=== PATIENT | female | born 1975 | race Caucasian/White ===

== ENCOUNTER 2018-12-26 15:17 | Emergency (ER) | payer OTHER ==
[2018-12-26 17:35] VITALS: BP 129/81
--- NOTE | 2018-12-26 19:08 | UC ---
Lower Extremity/Ankle HPI - HPI Summary HPI Summary: 43 year old female with complaints of right lateral foot pain x 2 weeks. States she recently began running and is concerned for a stress fracture. Reports pain is worse with running and improves with rest. Denies injury, numbness, or tingling. - History of Current Complaint Chief Complaint: UCLowerExtremity Stated Complaint: RIGHT FOOT INJURY Time Seen by Provider: 12/26/18 19:00 Hx Obtained From: Patient Hx Last Menstrual Period: 12/15 Pain Intensity: 0 - Allergies/Home Medications Allergies/Adverse Reactions: Allergies Allergy/AdvReac Type Severity Reaction Status Date / Time No Known Allergies Allergy Verified 12/26/18 17:28 Home Medications: Home Medications Ascorbic Acid [Vitamin C] 400 mg PO DAILY 12/26/18 [History Confirmed 12/26/18] Cholecalciferol TAB* [Vitamin D TAB*] 20 units PO DAILY 12/26/18 [History Confirmed 12/26/18] Ibuprofen TAB* [Motrin TAB* 600 MG] 600 mg PO DAILY PRN 12/26/18 [History Confirmed 12/26/18] SUMAtriptan TAB* [Imitrex TAB*] 25 mg PO SEE INSTRUCTIONS PRN 12/26/18 [History Confirmed 12/26/18] PMH/Surg Hx/FS Hx/Imm Hx Previously Healthy: Yes Neurological History: Migraine - Surgical History Surgical History: Yes Surgery Procedure, Year, and Place: right ACL, tubal; section x2 - Family History Known Family History: Positive: Non-Contributory - Social History Occupation: Employed Full-time Lives: With Family Alcohol Use: None Substance Use Type: None Smoking Status (MU): Former Smoker Review of Systems All Other Systems Reviewed And Are Negative: Yes Skin: Negative: Rash, Bruising Respiratory: Positive: Negative Cardiovascular: Positive: Negative Gastrointestinal: Positive: Negative Genitourinary: Positive: Negative Motor: Negative: Decreased ROM Neurovascular: Negative: Decreased Sensation Musculoskeletal: Positive: Other: - See HPI Neurological: Positive: Negative Is Patient Immunocompromised?: No Physical Exam - Summary Physical Exam Summary: GENERAL APPEARANCE: Well developed, well nourished, alert and cooperative, and appears to be in no acute distress. CARDIAC: Normal S1 and S2. No S3, S4 or murmurs. Rhythm is regular. There is no peripheral edema, cyanosis or pallor. Extremities are warm and well perfused. Capillary refill is less than 2 seconds. Peripheral pulses intact. LUNGS: Clear to auscultation without rales, rhonchi, wheezing or diminished breath sounds. ABDOMEN: Positive bowel sounds. Soft, nondistended, nontender. No guarding or rebound. No masses or hepatosplenomegally. MUSKULOSKELETAL: ROM intact to all extremities. No joint erythema or tenderness. Normal muscular development. Normal gait. EXTREMITIES: Mild tenderness to the lateral aspect of the right foot most prominent over the 3rd, 4th, and 5th mid metatarsals without ecchymosis, erythema, or gross deformity. Sensation and circulation intact. SKIN: Skin normal color, texture and turgor with no lesions or eruptions. Triage Information Reviewed: Yes Vital Signs: Initial Vital Signs Temp 98.1 F 12/26/18 17:31 Pulse 63 12/26/18 17:31 Resp 18 12/26/18 17:31 BP 129/81 12/26/18 17:31 Pulse Ox 100 12/26/18 17:31 Vital Signs Reviewed: Yes Diagnostics - Radiology No standard instances Radiology Interpretation Completed By: Radiologist Summary of Radiographic Findings: Order Information: FOOT RIGHT 3+ VWS. Accession Number: [id number]. CPT: 15014. Indication: Fourth and fifth metatarsal pain. Concern for potential stress fracture. Comparison: No relevant prior exams available on the [facility] PACS for comparison. Technique: AP, lateral, and oblique views RIGHT foot. REPORT AND IMPRESSION: #. Small region of indolent appearing periosteal thickening noted at the lateral margin of the proximal diaphysis of the third metatarsal which may represent a healing stress reaction. No additional stress reaction or fracture evident. #. Mild osteoarthritis at the first metatarsal phalangeal joint. #. Small plantar fascia origin bone spur. #. Unremarkable soft tissue contours. Lower Extremity Course/Dx - Course Course Of Treatment: 43 year old female with complaints of right lateral foot pain x 2 weeks. States she recently began running and is concerned for a stress fracture. Reports pain is worse with running and improves with rest. Denies injury, numbness, or tingling. Afebrile. VSS. Exam remarkable for mild tenderness to the lateral aspect of the right foot most prominent over the 3rd, 4th, and 5th mid metatarsals without ecchymosis, erythema, or gross deformity. Sensation and circulation intact. X-ray showed small region of indolent appearing periosteal thickening noted at the lateral margin of the proximal diaphysis of the third metatarsal which may represent a healing stress reaction. No additional stress reaction or fracture evident. Recommending OTC analgesics and activity modification for 4-6 weeks with follow up with orthopedics as needed. Anticipatory guidance and warning symptoms reviewed with the patient. Verbalizes understanding and agrees with POC. - Differential Dx/Diagnosis Differential Diagnosis/HQI/PQRI: Contusion, Fracture (Closed), Sprain, Other - Stress fracture, plantar fascititis Provider Diagnosis: Stress fracture of right foot Discharge - Sign-Out/Discharge Documenting (check all that apply): Patient Departure All imaging exams completed and their final reports reviewed: Yes - Discharge Plan Condition: Stable Disposition: HOME Patient Education Materials: Foot Fracture in Adults (ED) Referrals: Isa Gardner MD [Primary Care Provider] - Zaki Rodriguez MD [Medical Doctor] - 7 Days (If no improvement in symptoms.) Additional Instructions: The x-ray of your foot showed a healing stress fracture of the 3rd metatarsal of the right foot. Rest the foot as much as possible. You may continue to walk and bear weight however you should avoid stenuous activities such as running or jumping for 4-6 weeks. Take acetaminophen (Tylenol) or ibuprofen (Advil, Motrin) according to directions as needed for pain. Follow up with orthopedic surgery in 1 week if no improvement in symptoms. - Billing Disposition and Condition Condition: STABLE Disposition: Home
== END 2018-12-26 19:15 | disposition home or self-care (01) ==
LOC: UCCORT 15:17
DX: M84.374A Stress fracture, right foot, initial encounter for fracture (principal); Z87.891 Personal history of nicotine dependence; X58.XXXA Exposure to other specified factors, initial encounter; Y93.02 Activity, running; Y92.9 Unspecified place or not applicable
CPT/HCPCS: 99201; G0463

== ENCOUNTER 2019-09-28 15:36 | Emergency (ER) | payer OTHER ==
--- OUTSIDE RECORDS SUMMARY | 2019-09-28 15:42 | XMS REPORT | Continuity of Care Document ---
:1975 External Reference #:[id number] Author Name Jolanta Winkler PA Address [address] [place] [id number] Care Team Providers Name Role Phone Isa Gardner MD - Family Care Team Information [employer] Medicine Problems Active Problems Provider Date Foreign body of skin of knee Jolanta Winkler PA Onset: 09/22/2019 Knee pain Alfa Martinez M.D. Onset: 04/30/2016 Sprain of cruciate ligament of knee Alfa Martinez M.D. Onset: 03/30/2016 Pain in right lower limb Jolanta Winkler PA Onset: 03/21/2016 Derangement of knee Jolanta Winkler PA Onset: 03/21/2016 Knee joint effusion Jolanta Winkler PA Onset: 03/15/2016 Closed traumatic dislocation of patellofemoral Jolanta Winkler PA Onset: joint Social History Type Date Description Comments Sex Unknown Tobacco Use Start: Unknown Never Smoked Cigarettes ETOH Use Denies alcohol use Tobacco Use Start: Unknown Patient has never smoked Allergies, Adverse Reactions, Alerts Description No Known Drug Allergies Medications Active Medications SIG Qnty Indications Ordering Provider Date Ibuprofen prn Unknown Immunizations Description No Information Available Vital Signs Date Vital Result Comment 09/22/2019 1:27pm BP Systolic Sitting Left Arm 112 mmHg BP Diastolic Sitting Left Arm 63 mmHg Body Temperature 97.4 F Respiratory Rate 20 /min Height 63.5 inches 5'3.50" Weight 205.00 lb BMI (Body Mass Index) 35.7 kg/m2 BSA (Body Surface Area) 1.97 m2 [place] body weight in kilograms 53 kg 05/02/2016 10:06am BP Systolic Sitting Right Arm 114 mmHg BP Diastolic Sitting Right Arm 78 mmHg Heart Rate 83 /min Height 63.5 inches 5'3.50" Weight 228.00 lb BMI (Body Mass Index) 39.8 kg/m2 BSA (Body Surface Area) 2.06 m2 [place] body weight in kilograms 53 kg Head Circumference 8 inches Results Description No Information Available Procedures Date Code Description Status 09/22/2019 98005 Radiology, Knee 3 Views Completed Medical Devices Description No Information Available Encounters Type Date Location Provider Dx Diagnosis Office Visit 09/22/2019 Orthopaedic Office Jolanta Winkler, M25.561 Pain in right 1:45p PA knee S83.511S Sprain of anterior cruciate ligament of right knee, sequela S80.251A Superficial foreign body, right knee, initial encounter Assessments Date Code Description Provider 09/22/2019 M25.561 Pain in right knee Jolanta Winkler PA 09/22/2019 S83.511S Sprain of anterior cruciate ligament of right Jolanta Winkler PA knee, sequela 09/22/2019 S80.251A Superficial foreign body, right knee, initial Jolanta Winkler PA encounter Plan of Treatment No Information Available Functional Status Description No Information Available Mental Status Description No Information Available Referrals Description No Information Available
[2019-09-28 16:26] VITALS: BP 117/78
--- NOTE | 2019-09-28 16:52 | UC ---
Knee Pain HPI - HPI Summary HPI Summary: 44 year old female with knee issue. Right knee pain,swelling since 09/22/19 after trying to become more active to get healthier . Pt learned today guide wire was left in knee since 04/2016 surgery. Pt wants referral to [facility]. Pr is using her crutches for no WB . Pain 6/10 at this time. Exertion worsens symptoms. Rest improves Sx. No fever, pain, swelling in the calf, SOB. Wanted to go to PCP but long wait. - History of Current Complaint Chief Complaint: UCLowerExtremity Stated Complaint: RIGHT KNEE COMPLAINT Time Seen by Provider: 09/28/19 16:51 Hx Obtained From: Patient Hx Last Menstrual Period: 09/25/19 Onset/Duration: Gradual Onset Pain Intensity: 6 Aggravating Factor(s): Movement, Weight Bearing, Prolonged Standing, Stairs Alleviating Factor(s): Rest - Allergies/Home Medications Allergies/Adverse Reactions: Allergies Allergy/AdvReac Type Severity Reaction Status Date / Time No Known Allergies Allergy Verified 09/28/19 16:27 PMH/Surg Hx/FS Hx/Imm Hx Previously Healthy: Yes - Surgical History Surgical History: Yes Surgery Procedure, Year, and Place: C-Sections, 2000 2001, [facility]. Tonsillectomy , 2000, [facility]. Right ACL repair and 2 pins for a fx-04/2016 - Family History Known Family History: Positive: None, Non-Contributory Family History: denies cardiovascular issues in family lineage - Social History Alcohol Use: Rare Substance Use Type: None Smoking Status (MU): Former Smoker Type: Cigarettes Amount Used/How Often: 1/3 PPD Length of Time of Smoking/Using Tobacco: On and Off for 24 Years Have You Smoked in the Last Year: Yes When Did the Patient Quit Smoking/Using Tobacco: 10/24/15 Review of Systems All Other Systems Reviewed And Are Negative: Yes Musculoskeletal: Positive: Arthralgia Physical Exam Triage Information Reviewed: Yes Appearance: Well-Appearing, No Pain Distress, Well-Nourished Vital Signs: Initial Vital Signs Temp 98.7 F 09/28/19 16:17 Pulse 66 09/28/19 16:17 Resp 20 09/28/19 16:17 BP 117/78 09/28/19 16:17 Pulse Ox 98 09/28/19 16:17 Vital Signs Reviewed: Yes Eye Exam: Normal Neck: Positive: 1 Respiratory Exam: Normal Cardiovascular Exam: Normal Musculoskeletal Exam: Normal Musculoskeletal: Positive: Strength Intact, ROM Intact, Other: - patellar tendon tender as well as poploteal fossa. no edema that is significant. Neg Homans sign. No medial or lateral joint line tenderness . strength 5/5. sensation intact. Neurological Exam: Normal Psychological Exam: Normal Skin Exam: Normal Knee Pain Course/Dx - Course Course Of Treatment: asking for second opinion and referral to [facility]. Can start that referral at this time. She will call for appt. If Sx worsen go to ED> likely PFS present at this time as well and she is aware for RICE and NSAID s - Differential Dx/Diagnosis Differential Diagnosis/HQI/PQRI: Internal Derangement Of Knee, Patellofemoral Syndrome, Sprain, Strain Provider Diagnosis: Knee pain Discharge ED - Sign-Out/Discharge Documenting (check all that apply): Patient Departure All imaging exams completed and their final reports reviewed: No Studies - Discharge Plan Condition: Good Disposition: HOME Patient Education Materials: Knee Pain (ED) Referrals: Isa Gardner MD [Primary Care Provider] - 3 Days [place] CARDENAS,Judson Blake [Medical Doctor] - As Soon As Possible ([facility] / Ortho referral ) - Billing Disposition and Condition Condition: GOOD Disposition: Home
== END 2019-09-28 17:03 | disposition home or self-care (01) ==
LOC: UCCORT 15:36
DX: M25.561 Pain in right knee (principal); Z87.891 Personal history of nicotine dependence
CPT/HCPCS: 99211; G0463